=== PATIENT | female | born 1975 | race Caucasian/White ===

== ENCOUNTER 2016-05-28 08:15 | Inpatient (IN) | payer OTHER ==
[~2016-05-28] VITALS: Ht 149.9 cm; Wt 62.6 kg
--- NOTE | ~2016-05-28 | EKG ---
[place] [address] [facility] [place] [address] ELECTROCARDIOGRAM REPORT Name: KERRY CHAVEZ [facility] [id number] Admission: 05/28/16 Attend Phys: Discharge: Date of : 71 Report #: [id number] THIS REPORT FOR: //name// [facility] ED Test Date: 2016-05-28 Test Time: 08:52:34 Pat Name: KERRY CHAVEZ Department: Room: Gender: F Master Baker: Maureen ISLAS : 1975 Requested By: Ronald Dang Order Number: [id number] MD: Cortes Castro Measurements Intervals [place] Rate: 62 P: 24 MS: 117 QRS: 51 QRSD: 84 T: 48 QT: 410 QTc: 417 Interpretive Statements Sinus rhythm Borderline short MS interval No previous ECG available for comparison Electronically Signed On 05-28-2016 8:56:04 [employer] by Cortes Castro [email or web address] <ELECTRONICALLY SIGNED> By: Cortes Castro MD, [facility] 05/28/16 [phone] Cortes Castro MD, FAC /EPI
--- NOTE | ~2016-05-28 | H ---
[facility] [place] [address] HISTORY AND PHYSICAL Name: KERRY CHAVEZ Room #: 548-I [facility] IN .R.#: [id number] Admission: 05/28/16 Attend Phys: Jennyfer Jesus MD Discharge: 05/30/16 Date of : 71 Report #: [id number] THIS REPORT FOR: //name// CC: Fatou Jesus DATE OF SERVICE: 05/28/2016 PRIMARY CARE DOCTOR: Fatou Perez MD CHIEF COMPLAINT: Abdominal pain. 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 History of small bowel obstruction last year in November. Presented to the ER secondary to nausea, vomiting and abdominal pain. Her mom and her aunt are the bedside and are her primary caregivers. Apparently symptoms started early this morning with epigastric pain, nausea and vomiting. She had a couple episodes of emesis. She denies any fever or chills. Workup in the ER revealed patient had a small bowel obstruction. Mom indicates that she is still having stools; however, they are unformed. Generally, she has a daily bowel movement that is formed. 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 PAST SURGICAL HISTORY: She had duodenostomy repair as above. ALLERGIES: MELOXICAM. CURRENT MEDICATIONS: Vitamin D, [place], Synthroid, simvastatin, omeprazole, Neurontin, Tylenol and MiraLax. FAMILY HISTORY: Reviewed and noncontributory. SOCIAL HISTORY: She does not smoke or drink. Lives with her mom who is her primary caregiver. Aunt is also at the bedside. PHYSICAL EXAMINATION: VITAL SIGNS: Temp 98, pulse 66, blood pressure 103/54 and O2 sat 100% on room air. GENERAL: She is awake, alert and answering questions appropriately, in no acute respiratory distress. Very pleasant and appropriate. HEENT: Normocephalic and atraumatic. Pupils are equal. Mucous membranes are [facility] [address] [place] [address] HISTORY AND PHYSICAL Name: KERRY CHAVEZ Room #: 548-I [facility] IN [facility]#: [id number] Admission: 05/28/16 Attend Phys: Jennyfer Jesus MD Discharge: 05/30/16 Date of : 71 Report #: [id number]. NECK: Supple. CARDIOVASCULAR: Regular rate and rhythm. No murmurs. LUNGS: Clear to auscultation bilaterally. No crackles or wheeze. ABDOMEN: Soft. She has got mid abdominal tenderness. Mild distention. Decrease in bowel sounds. EXTREMITIES: No edema. NEUROLOGIC: Nonfocal. LABORATORIES AND TESTING: CT of the abdomen and pelvis showed small bowel obstruction. Mild wall thickening of urinary bladder correlates for cystitis. Her UA was negative. White count of 11.8, H and H of 12 and 38, platelets 469, 88 segs and 5 bands. Sodium 140 and potassium 3.6. BUN and creatinine of 5 and 1.1. LFTs are negative. ASSESSMENT AND PLAN: 1. Small bowel obstruction. The patient with history of duodenal atresia and prior history of the same. We will continue bowel rest, antiemetics and pain control. Surgery has been notified. 2. Dyslipidemia. We will hold her statin for now. 3. Hypothyroidism. We will hold her Levoxyl. She has prolonged bowel rest and n.p.o. status. We will switch her to IV. 4. Chronic pain, on Neurontin. We will hold her Neurontin for now and continue IV pain medication. 5. High-functioning Down. The patient appears appropriate to manage her own decisions; however, mother is her caregiver ____ if patient is incapable of making her own decisions at any point. 6. Deep venous thrombosis prophylaxis with Lovenox. <ELECTRONICALLY SIGNED> By: Jennyfer Jesus MD 06/23/162009 [id number] [id number] Jennyfer Jesus MD /nt
--- NOTE | ~2016-05-28 | HC ---
[facility] [place] [address] CONSULTATION Name: KATHYKERRY Room #: 548-I ADM IN M.R.#: [id number] Admission: 05/28/16 Attend Phys: Jennyfer Jesus MD Discharge: Date of : 71 Report #: [id number] THIS REPORT FOR: //name// CC: Fatou Jesus DATE OF SERVICE: 05/28/2016 REFERRING PROVIDER: Jennyfer Jesus MD. REASON FOR CONSULTATION: Abdominal pain. HISTORY OF PRESENT ILLNESS: The patient is a 40-year-old female with Down syndrome, who presents with crampy abdominal pain that began early this morning. The patient has had 2 bouts of vomiting, while at home, and as such, she presented for evaluation. Of note, the patient had very similar symptoms on 12/14/2015, where she was admitted for a small-bowel obstruction that showed dilated stomach and small bowel to the mid small bowel with decompressed ileum. On admission, this time, the patient underwent a CT scan of the abdomen and pelvis again, as well as laboratories and while her labs are within normal limits. Her CT scan showed fluid filled distended stomach, and proximal small bowel with decompressed distal small bowel, again concerning for partial small-bowel obstruction. The patient was, therefore, admitted for recurrent small-bowel obstruction, and I have been asked to evaluate from a surgical standpoint. At the patient's prior to admission, there was a question of mild partial bowel rotation; however, this was thought secondary to her duodenal atresia repair in infancy, and she had no overt evidence of midgut volvulus. On this most recent CT scan, she has no evidence of mesenteric twisting whatsoever. PAST MEDICAL HISTORY: 1. Down syndrome with prior duodenal atresia repair, as she is status post duodenoduodenostomy. 2. Hypothyroidism. 3. Hypercholesterolemia. 4. Vitamin D deficiency. 5. Reflux sympathetic dystrophy on the right side. MEDICATIONS: Vitamin D, [place], Synthroid, simvastatin, omeprazole, Neurontin, Tylenol, and MiraLax. ALLERGIES: MELOXICAM. FAMILY HISTORY: Reviewed and noncontributory. SOCIAL HISTORY: The patient lives with her mother and does not utilize any alcohol, tobacco, or illicit drugs. [address] [address] CONSULTATION Name: KERRY CHAVEZ Room #: 548-I [facility] IN ..#: [id number] Admission: 05/28/16 Attend Phys: Jennyfer Jesus MD Discharge: Date of : 71 Report #: [id number] REVIEW OF SYSTEMS: GENERAL: The patient denies nocturnal fevers or chills. HEENT: No change in vision or change in hearing. NECK: No swelling or difficulty swallowing. HEART: No chest pain or palpitations. LUNGS: No cough or shortness of breath. ABDOMEN: Abdominal pain with vomiting. GENITOURINARY: No dysuria or hematuria. ENDOCRINE: No polyuria or polydipsia. HEMATOLOGIC: No history of bleeding or easy bruising. EXTREMITIES: No history weakness or limited range of motion. NEUROLOGIC: No history of syncope or near syncopal episodes. SKIN AND INTEGUMENT: No history of abnormal lesions or moles. PSYCHIATRIC: No history of anxiety or depression. PHYSICAL EXAMINATION: VITAL SIGNS: Temperature 98.4, pulse 63, respirations 19, blood pressure 117/64. She is 4 feet 11 inches tall and weighs 138 pounds. GENERAL: She is alert, in no acute distress. HEENT: Normocephalic and atraumatic. Pupils are equal, round, and reactive to light. NECK: Supple without lymphadenopathy. Trachea is midline. HEART: Regular rate and rhythm. LUNGS: Clear to auscultation bilaterally. GASTROINTESTINAL: Abdomen is soft. No real distention with minimal tenderness in the epigastrium, but no guarding, rebound, or peritoneal signs or symptoms. She has hypoactive bowel sounds. GENITOURINARY: Normal external female genitalia. EXTREMITIES: No clubbing, cyanosis, or edema. NEUROLOGIC: Cranial nerves 2-12 are grossly intact. PSYCHIATRIC: Normal mood and affect. SKIN AND INTEGUMENT: No abnormal lesions or moles. LABORATORY AND X-RAY DATA: CBC shows white blood cell count of 11,800, hemoglobin 12.9, platelets 469,000. She has a left shift of 88% neutrophils. Creatinine is 1.1. Liver function enzymes are normal. Urinalysis is negative. 3-view abdominal x-ray shows a nonspecific bowel gas pattern. CT scan of the abdomen and pelvis, as per HPI, shows dilated stomach and proximal small bowel measuring up to 3 cm in diameter with no overt transition point and there is fluid and gas throughout the colon, concerning for partial small-bowel obstruction. ASSESSMENT AND PLAN: This is a 40-year-old female with Down syndrome, who underwent a prior abdominal exploration for repair of duodenal atresia in infancy, who presents with an 8-hour history of abdominal pain, nausea, and [facility] [address] [place] [address] CONSULTATION Name: KERRY CHAVEZ Room #: 548-I ADM IN Rigoberto.#: [id number] Admission: 05/28/16 Attend Phys: Jennyfer Jesus MD Discharge: Date of : 71 Report #: [id number] vomiting. The patient's workup shows a partial small-bowel obstruction, with dilated and fluid-filled stomach and proximal small bowel and decompressed ileum; however, she is not actively vomiting or nauseated at the present time. I do think a trial of bowel rest with conservative measures is appropriate rather than placement of an NG tube at this time, as that would be quite traumatic in this patient. She has been admitted by the hospitalist service where she will be given IV fluid rehydration and bowel rest, and I will conduct serial abdominal exams and daily x-rays. Again, she has the high likelihood of clearing this bowel obstruction with conservative therapy over the next few days. However, if she does become actively nauseated and vomits, she may necessitate placement of an NG tube for decompression, and ultimately she may necessitate some form of surgical intervention if she does not resolve with conservative measures. I sincerely appreciate this consult. I will follow along and leave any further recommendations in the patient's chart as appropriate. <ELECTRONICALLY SIGNED> By: Lynda Atwood MD, FACS 05/29/16 0656 1306 50 Lynda Atwood MD, FACS /nt
--- NOTE | ~2016-05-28 | D ---
[facility] [place] [address] DISCHARGE SUMMARY Name: KATHYKERRY Room #: 548-I [facility] IN M.R.#: [id number] Admission: 05/28/16 Attend Phys: Jennyfer Jesus MD Discharge: 05/30/16 Date of : 71 Report #: [id number] THIS REPORT FOR: //name// CC: Fatou Jesus DATE OF SERVICE: 05/30/2016 DATE OF ADMISSION: 05/28/2016. DATE OF DISCHARGE: 05/30/2016. DISCHARGE DIAGNOSES: 1. Abdominal pain, now resolved. 2. History of duodenal atresia. 3. Dyslipidemia. 4. Hypothyroidism. 5. Chronic pain. 6. Down syndrome. 7. Vitamin D deficiency. 8. Reflex sympathetic dystrophy. CONSULTS: Surgery, Dr. Atwood. PROCEDURES: None. HOSPITAL COURSE: The patient is a 40-year-old female with a history of high function Down syndrome, prior duodenal atresia, status post duodenostomy, as well as history of small bowel obstruction in November of last year, presented to the ER secondary to nausea, vomiting and abdominal pain. Please see details of admission dictated by myself on 05/28. Workup in the ER included a CT scan of the abdomen that showed small-bowel obstruction and mild wall thickening of the urinary bladder. The patient was admitted and surgery was consulted. She was put on bowel rest, antiemetics and pain control. Surgery saw her in consult and agreed with the current plans; however, the following day, she had a repeat abdominal x-ray that showed nonspecific bowel gas pattern, and at that time, she was feeling better with less pain. She was also ambulating in the hallways without problems. I spoke with Dr. Atwood, who reviewed the CT with Radiology, and felt that she in fact did not have a bowel obstruction. At that time, clinically she was much improved. No nausea, vomiting or abdominal pain. Her mom, who is her primary caregiver, was not happy with her potential discharge without a repeat CAT scan. However, I talked to Dr. Atwood, who did not feel that she needed it. She started clears, and was able to tolerate it; therefore, was discharged to home. Again, this was under the instruction of Dr. Atwood, who I spoke with, and who reviewed the CAT scan from prior hospitalization and this current hospitalization and felt that she did not have a bowel obstruction. [address] [address] DISCHARGE SUMMARY Name: KERRY CHAVEZ Room #: 548-I [facility] IN .R.#: [id number] Admission: 05/28/16 Attend Phys: Jennyfer Jesus MD Discharge: 05/30/16 Date of : 71 Report #: [id number] Per nurses' report, the patient was doing well and tolerated her diet and had no other issues. DISCHARGE DISPOSITION: To home. DISCHARGE PHYSICAL EXAMINATION: VITAL SIGNS: Temperature of 36.7, pulse 57, blood pressure 118/60 and O2 sat 98% on room air. GENERAL: She is awake, alert, answering question appropriately and in no acute respiratory distress. NECK: Supple. CARDIOVASCULAR: Regular rate and rhythm. No murmurs. LUNGS: Clear to auscultation bilaterally. No crackles or wheezes. ABDOMEN: Soft, no distention and no tenderness. EXTREMITIES: No edema. NEUROLOGIC: Nonfocal. DISCHARGE MEDICATIONS: Levothyroxine 75 mcg daily, simvastatin 20 daily, vitamin D 1000 units daily, omeprazole 20 daily, Ogema p.r.n., gabapentin 600 b.i.d., Tylenol p.r.n. and MiraLax 17 grams daily. DIET: Dix diet as tolerated. ACTIVITY: As tolerated. DISCHARGE INSTRUCTIONS: Followup CBC and CMP in 1 week and to seek immediate medical attention if symptoms worsen or recur or if she has any significant medical concerns. Discharge plan took 40 minutes in coordinating care with staff as well as speaking with surgery. <ELECTRONICALLY SIGNED> By: Jennyfer Jesus MD 07/20/16 1053 1446 1811 Jennyfer Jesus MD /nt
[~2016-05-28 08:15] MED LIST: AMITRIPTYLINE H25 M2 PO; B-12500 MCG PO; HYDROCODON-ACE1 EAC5 PO; IBUPROFEN 800800 MG PO; LEVOXYL75 MCG PO; NEURONTIN 300300 M1 PO; OMEPRAZOLE 20 M20 MG PO; SIMVASTATIN20 MG PO; VITAMIN D400 UNI1 PO; ZOFRAN4 MG PO
[2016-05-28 08:16] VITALS: BP 137/70
[2016-05-28] MEDS ORDERED: APAP500 PO (08:54)
[2016-05-28] MEDS ORDERED: MIRALAX17 GM PO (08:57)
[2016-05-28 09:14] LABS: HEMATOCRIT 38.9 % (37.0-47.0); HEMOGLOBIN 12.9 gm/dL (12.0-15.0); MCH 32.8 pg (26.0-34.0); MCHC 33.2 % (28.0-37.0); MCV 98.7 fL (80.0-100.0); PLATELET COUNT 469 thou/uL (150-400); RBC 3.94 mil/uL (4.20-5.00); RDW 16.4 % (10.5-14.5); WBC 11.8 thou/uL (4.0-11.0)
[2016-05-28 09:15] LABS: MANUAL DIFF YES
[2016-05-28 09:17] LABS: ANION GAP 8 mmol/L (7-16); BUN 5 mg/dL (7-18); CALCIUM 9.4 mg/dL (8.5-10.1); CHLORIDE 103 mmol/L (98-107); CO2 29 mmol/L (21-32); CREATININE 1.1 mg/dL (0.6-1.3); GLUCOSE 135 mg/dL (70-99); POTASSIUM 3.6 mmol/L (3.5-5.1); SODIUM 140 mmol/L (136-145)
[2016-05-28 09:25] LABS: ALBUMIN 3.7 g/dL (3.4-5.0); ALKALINE PHOSPHATASE 76 U/L (46-116); SGOT 18 U/L (15-37); SGPT 22 U/L (30-65); TOTAL BILIRUBIN 0.4 mg/dL (<0.1-1.0); TROPONIN-I < 0.04 ng/mL (<0.04-0.07)
[2016-05-28 10:09] LABS: URINE BILIRUBIN NEGATIVE (Negative); URINE BLOOD NEGATIVE (Negative); URINE COLOR YELLOW; URINE GLUCOSE-RANDOM* NEGATIVE (Negative); URINE KETONES NEGATIVE (Negative); URINE LEUKOCYTES-REFLEX NEGATIVE (Negative); URINE PROTEIN (DIPSTICK) NEGATIVE (Negative); URINE SPECIFIC GRAVITY 1.015 (1.003-1.035); URINE UROBILINOGEN 0.2 E.U./dl (0.2-1.0)
[2016-05-28 10:21] LABS: TOTAL CELL COUNT 100
[2016-05-28 10:22] LABS: LARGE PLATELETS FEW
[2016-05-28 13:10] VITALS: BP 117/64
[2016-05-28 16:29] VITALS: BP 103/54
[2016-05-28 20:00] VITALS: BP 111/58
[2016-05-28 23:49] LABS: TROPONIN-I < 0.04 ng/mL (<0.04-0.07)
[2016-05-29 04:00] VITALS: BP 140/57
[2016-05-29 05:51] LABS: ABSOLUTE NEUTROPHILS 3.6 thou/uL (1.4-8.2); BASOPHILS 0.6 % (0.0-2.0); EOSINOPHILS 0.2 % (0.0-3.0); HEMATOCRIT 32.5 % (37.0-47.0); HEMOGLOBIN 10.8 gm/dL (12.0-15.0); LYMPHOCYTES 22.2 % (24.0-44.0); MCH 33.4 pg (26.0-34.0); MCHC 33.2 % (28.0-37.0); MCV 100.7 fL (80.0-100.0); MONOCYTES 7.1 % (1.0-8.0); POLYS 69.9 % (36.0-66.0); RBC 3.23 mil/uL (4.20-5.00); RDW 16.1 % (10.5-14.5); WBC 5.1 thou/uL (4.0-11.0)
[2016-05-29 05:54] LABS: MANUAL DIFF NO
[2016-05-29 06:11] LABS: CALCIUM 7.9 mg/dL (8.5-10.1); CREATININE 0.9 mg/dL (0.6-1.3); POTASSIUM 4.2 mmol/L (3.5-5.1)
[2016-05-29 08:24] LABS: ANISOCYTOSIS 1+
[2016-05-29 08:38] VITALS: BP 101/52
[2016-05-29 11:35] LABS: PLATELET COUNT 285 thou/uL (150-400)
[2016-05-29 15:22] VITALS: BP 101/52
[2016-05-29 16:07] VITALS: BP 131/70
[2016-05-29 20:00] VITALS: BP 130/75
[2016-05-30 04:00] VITALS: BP 127/70
[2016-05-30 08:15] VITALS: BP 118/60
[2016-07-03] MEDS ORDERED: VITAMIN D 5050000 I1 PO (14:15)
[2016-07-03] MEDS ORDERED: ZOCOR 10 MG TAB10 MG PO (14:16)
[2016-07-03] MEDS ORDERED: LYRICA 75 MG CA75 MG PO (14:17)
[2016-07-03] MEDS ORDERED: CYMBALTA30 MG PO (14:17)
== END 2016-05-30 09:32 | disposition home or self-care (01) | DRG 390 ==
LOC: ER 08:15 → 5S 12:19 → EROBS 12:19 → 5S 13:00
PROVIDERS: Emergency Medicine; Family Medicine; Surgery
DX: K56.60 Unspecified intestinal obstruction (principal); K21.9 Gastro-esophageal reflux disease without esophagitis; G56.00 Carpal tunnel syndrome, unspecified upper limb; E03.9 Hypothyroidism, unspecified; G89.29 Other chronic pain; E78.00 Pure hypercholesterolemia, unspecified; E78.5 Hyperlipidemia, unspecified; Q90.9 Down syndrome, unspecified; Z79.899 Other long term (current) drug therapy; Z93.3 Colostomy status; Z88.8 Allergy status to other drugs, medicaments and biological substances
CPT/HCPCS: 10785

== ENCOUNTER → 2016-08-07 | Outpatient (CLI) | payer OTHER ==
[~2016-08-07] MED LIST changes: +APAP500 PO; +CYMBALTA30 MG PO; +LYRICA 75 MG CA75 MG PO; +MIRALAX17 GM PO; +VITAMIN D 5050000 I1 PO; +ZOCOR 10 MG TAB10 MG PO
--- NOTE | ~2016-08-07 | S ---
[facility] [place] [address] SURGICAL PATH RPT PROCEDURE Name: KERRY CHAVEZ Room #: REG Angela Franklin.#: [id number] Admission: 08/07/16 Date of : 71 Discharge: Report #: [id number] Path Case #: [id number] PATHOLOGY REPORT COLLECTION DATE: 08/07/2016 RECEIVED DATE: 08/07/2016 SUBMITTING PHYS: Dr. Mauricio Blackmon OTHER PHYS: Dr. Fatou Perez SPECIMEN(S) RECEIVED: A.Small bowel bx * * * * * * * * * * * * FINAL DIAGNOSIS: "Small bowel bx," biopsy: - Small bowel / duodenal mucosa with minimal histologic alterations; no evidence of celiac sprue. (CLW:; d/t: 08/10/16) PATHOLOGIST: Kirsty Dhillon M.D. REPORT ELECTRONICALLY SIGNED BY: Kirsty Dhillon M.D. DATE/TIME: 08/10/2016 14:52 * * * * * * * * * * * * GROSS PATHOLOGY: Received in formalin labeled "Kerry Chavez and bx of small bowel," are 6 segments of nicholson soft tissue measuring 2.2 x 0.3 x 0.2 cm in aggregate dimensions and ranging from 0.2 to 0.7 cm in maximum dimension. The specimen is submitted entirely in cassette A1. (TTL; 08/07/2016) CLINICAL HISTORY: None given INITIAL CPT CODE(S): A; 90567 Professional services performed by [facility] at [facility] [address] [place] [address] Technical services performed by [facility] at [address] [place] [id number]. [facility] [address] [place] [address] SURGICAL PATH RPT PROCEDURE Name: KERRY CHAVEZ Room #: REG MACK Deal#: [id number] Admission: 08/07/16 Date of : 71 Discharge: Report #: [id number] Path Case #: [id number] [address] PHONE: [phone] DIRECTOR: Jose Childs M.D. * * * END OF REPORT * * *
--- NOTE | ~2016-08-07 | P ---
[facility] [place] [address] PROCEDURE REPORT Name: KATHYKERRY [facility] [id number] Admission: 08/07/16 Attend Phys: Mauricio Blackmon MD Discharge: Date of : 71 Report #: [id number] THIS REPORT FOR: //name// CC: JAKE Perez BRIEF HISTORY: The patient is a 40-year-old woman known to me who had a recent admission for small-bowel obstruction. She has continued to lose weight. She has a history of cervical esophageal ring with previous dilation, but denies dysphagia. However, mother reports that she is not eating as much as she has eaten in the past. PREOPERATIVE DIAGNOSES: Abdominal pain, weight loss and history of cervical esophageal ring. Anemia, normochromic. POSTOPERATIVE DIAGNOSES: 1. Mild erythematous gastritis. 2. Moderately tight cervical esophageal ring. 3. Deformity duodenum consistent with previous surgery for duodenal stenosis as an . MEDICATIONS: Deep sedation with propofol per anesthesia. SPECIMEN: Small bowel biopsy rule out celiac disease. ESTIMATED BLOOD LOSS: 3 mL. PROCEDURE: EGD with biopsy. FINDINGS: Prior to sedation, procedure of upper endoscopy and dilation was discussed with the patient ____ as well as potential risks, benefits and complications. They indicate they understand and desire that we proceed. DESCRIPTION OF THE PROCEDURE: With the patient in the left lateral decubitus position, the Quandorai video endoscope was inserted in the oropharynx and into the cervical esophagus. Immediately upon entering the cervical esophagus a high grade ring was seen. This had been dilated in the past. It was too tight to allow forward advancement of the scope, although I could easily see the ring. It had a smooth and benign appearance. The Savary wire was advanced through the biopsy channel of the scope and through the lumen of the ring and distally. The scope was drawn and she was dilated over the wire with 10, 11 and 12 mm dilators. Following dilation, there was a moderate superficial mucosal tear. The tear was shallow and not deep. It appeared to be essentially mucosa that was torn. This was consistent with dilation. Due to the size of the defect, we did not dilate any further today. The scope was advanced throughout the [facility] [address] [place] [address] PROCEDURE REPORT Name: KERRY CHAVEZ Room #: REG MACK Franklin.#: [id number] Admission: 08/07/16 Attend Phys: Mauricio Blackmon MD Discharge: Date of : 71 Report #: [id number] remainder of the esophagus, which was noted to be unremarkable. Normal appearing mucosa. A significant hiatus hernia was not seen. Scope was advanced into the stomach, which was examined on end view as well as retroflexed views. She had some erythema in the antrum of stomach, no ulcers were seen, previous biopsies for H. pylori were negative, those were not repeated today. Upon retroflexion, no mass lesions were seen. The pylorus was normal. Examination of duodenal bulb in a particular second portion of duodenum revealed this to be somewhat cavernous in size. However, the mucosa appeared to be intact. In view of her weight loss and celiac disease, biopsies obtained to evaluate for celiac disease. The duodenal papilla was clearly seen, bile was seen coming from it. It had a normal appearance. Interestingly, the major papilla on the proximal site of the same folds, there was a significant defect seen, which was draining bilious material. It is noted she has had surgery in the past for duodenal stenosis. I wonder if she had a drainage procedure at the time of her surgery for duodenal stenosis. This is in the region of the minor papilla, but a definite minor papilla was not seen. I suspect that this is result from a surgery as an . The third portion of the duodenum was unremarkable. Multiple biopsies were obtained to evaluate for celiac disease. At that point, the scope was slowly withdrawn and careful circumferential views confirmed the above findings. The patient tolerated the procedure well. CONDITION OF THE PATIENT UPON DISCHARGE: Following procedure, the patient drowsy and arousable. She will be discharged to home when fully ambulatory. INSTRUCTIONS TO THE PATIENT AND FAMILY AT THE TIME OF DISCHARGE: We will follow up on biopsies, which were obtained today. Also, I think we should have her return in a couple of weeks for repeat dilation as we only got up to 12 mm today. This may require several sessions of dilation. I would wonder if weight loss and not eating as much is related to stricture although the patient denies that she is having trouble swallowing, but clearly she has significant stricturing. <ELECTRONICALLY SIGNED> By: Mauricio Blackmon MD 08/07/16 2034 0849 1203 Mauricio Blackmon MD /martha
== END | disposition home or self-care (01) ==
LOC: GI 06:38
DX: K56.69 Other intestinal obstruction (principal); D64.9 Anemia, unspecified; K29.70 Gastritis, unspecified, without bleeding

== ENCOUNTER → 2016-09-18 | Outpatient (CLI) | payer OTHER ==
[~2016-09-18] VITALS: Ht 147.3 cm; Wt 55.3 kg
[~2016-09-18] MED LIST changes: +LEVOTHYROXINE0.05 MG PO; +LYRICA 50 MG50 MG PO
--- NOTE | ~2016-09-18 | P ---
[facility] [place] [address] PROCEDURE REPORT Name: KATHYKERRY [id number] Admission: 09/18/16 Attend Phys: Mauricio Blackmon MD Discharge: Date of : 71 Report #: [id number] THIS REPORT FOR: //name// CC: Mauricio Perez MD DATE OF SERVICE: 09/18/2016 BRIEF HISTORY: The patient is a 40-year-old woman with history of Down syndrome and also recently found to have a high-grade proximal esophageal ring. Several weeks ago, she was initially dilated, returns today for continued dilation. PREOPERATIVE DIAGNOSIS: High-grade proximal esophageal ring. POSTOPERATIVE DIAGNOSES: 1. High grade proximal esophageal ring. 2. Mild diffuse gastritis. MEDICATIONS: Deep sedation with propofol per anesthesia. SPECIMEN: None. ESTIMATED BLOOD LOSS: 3 mL. PROCEDURE: EGD with insertion of guidewire and Savary dilation over a guidewire. FINDINGS: Prior to propofol sedation, procedure was discussed with the patient and her mother. We reviewed what we will be doing today. They indicate they understand and desire that we proceed. DESCRIPTION OF PROCEDURE: With the patient in left lateral decubitus position, the [employer] video endoscope was inserted in the cervical esophagus. Immediately upon entering the cervical esophagus, an obstruction was encountered. Unfortunately, the scope would not pass, even though we dilated to 12 mm at her last session. It was difficult to see the ring, but it was noted to be present. A guidewire was advanced through the lumen and the scope withdrawn and she was dilated with 11, 12 and 12.8 mm dilators. Following passage of 12.8, we introduced the scope and she was noted to have a moderate superficial tear. This was noted on one wall. On the opposite wall, there was a minor secondary tear which was much smaller. Again, these tears were shallow. At this point, the scope passed very easily through the cervical esophagus. Examination of the remainder of the esophagus was normal. The squamocolumnar junction was unremarkable. Scope was advanced in the stomach, which was examined on end view as well as retroflexed views. There was erythematous gastritis. No ulcers or [facility] [address] [place] [address] PROCEDURE REPORT Name: REESEADEOLA JAYKERRY Room #: REG [facility].#: [id number] Admission: 09/18/16 Attend Phys: Mauricio Blackmon MD Discharge: Date of : 71 Report #: [id number] erosions were seen. Pylorus was normal. Examination of duodenal bulb again revealed it to be cavernous, likely related to her previous surgery as an . No instructions were seen. At that point, the scope was slowly withdrawn and careful circumferential views confirmed the above findings. The patient tolerated the procedure well. CONDITION OF THE PATIENT UPON DISCHARGE: Following procedure, the patient drowsy. She will be discharged home when fully ambulatory. INSTRUCTIONS TO THE PATIENT AND FAMILY AT THE TIME OF DISCHARGE: We will have her start off with clear liquids today and advance as tolerated. Unfortunately, the ring had reformed again in the past several weeks. We did dilate 1 level higher than her last visit. We will have her return in several weeks for continued dilation. I would like to get her up to at least 15-16 mm. <ELECTRONICALLY SIGNED> By: Mauricio Blackmon MD 09/19/16 1228 [id number] Mauricio Blackmon MD /nt
== END ==
LOC: GI 06:31
DX: K29.50 Unspecified chronic gastritis without bleeding (principal); K31.9 Disease of stomach and duodenum, unspecified; K21.9 Gastro-esophageal reflux disease without esophagitis; E03.9 Hypothyroidism, unspecified; K22.2 Esophageal obstruction
CPT/HCPCS: 62110; 62900

== ENCOUNTER → 2016-10-05 | Outpatient (CLI) | payer OTHER ==
[~2016-10-05] VITALS: Ht 121.9 cm; Wt 55.3 kg
--- NOTE | ~2016-10-05 | P ---
[facility] [address] PROCEDURE REPORT Name: NIKALUKEKERRY Room #: [facility] [id number] Admission: 10/05/16 Attend Phys: Mauricio Blackmon MD Discharge: Date of : 71 Report #: [id number] THIS REPORT FOR: //name// CC: Mauricio Perez MD OUTPATIENT UPPER ENDOSCOPY REPORT BRIEF HISTORY: The patient is a 41-year-old woman with Down syndrome with high-grade proximal esophageal ring for repeat dilation. PREOPERATIVE DIAGNOSIS: Esophageal ring with dysphagia. POSTOPERATIVE DIAGNOSES: 1. Proximal esophageal ring. 2. Diffuse chronic gastritis. 3. 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 SPECIMEN: None. ESTIMATED BLOOD LOSS: 3 mL. PROCEDURE: EGD with insertion of guidewire in Savary dilator over wire. CONSENT: Prior to propofol sedation, procedure of upper endoscopy and dilation was reviewed with the patient and her mother. They indicate they understand and desired that we proceed. DESCRIPTION OF PROCEDURE: With the patient in left lateral decubitus position, the [employer] video endoscope was inserted in the cervical esophagus under direct vision without difficulty. Examination of this organ to its entire length revealed normal esophageal mucosa. Particularly, in the proximal esophagus, a ring was noted with the scope passed prior to dilation. Examination of the entire esophagus revealed normal mucosa. The squamocolumnar junction was unremarkable. Significant hiatus hernia was not seen. The scope was advanced into the stomach, was examined on end views as well as retroflexed views. There was diffuse gastritis which had been noted in the past. No ulcers were seen. Upon retroflexion, no abnormalities were seen. The pylorus, duodenal bulb and postbulbar duodenal sweep were all inspected and noted to be within normal limits. The pylorus was normal. The duodenal bulb was inspected and noted to be deformed as noted on previous exam consistent with her surgery as an . No other abnormalities were seen. Scope was withdrawn back to the stomach. A guidewire was inserted through the biopsy channel and scope. The scope was withdrawn over the guidewire. We then dilated with a 12.8 which is what we finished up with dilation at the last session, and then we followed this with a [facility] [address] [place] [address] PROCEDURE REPORT Name: KERRY CHAVEZ Room #: REG [facility] Say#: [id number] Admission: 10/05/16 Attend Phys: Mauricio Blackmon MD Discharge: Date of : 71 Report #: [id number] 14 mm dilator. A second look after passage of 12.8 did reveal a mucosal tear. However, the tear was shallow. It was felt best at this point to terminate the procedure. The scope and wire were withdrawn. The patient tolerated the procedure well. CONDITION OF THE PATIENT UPON DISCHARGE: Following procedure, the patient drowsy but arousable. She will be discharged home when fully ambulatory. Given instructions to the patient and family at the time of discharge. She has an esophageal ring, which was dilated once again as noted. Clinically the patient is doing well. She reports her swallowing has significantly improved. Since it is difficult for the procedure especially with regards to IV sticks, we will see how she does in the near future. If she starts having dysphagia again, we will need to repeat dilation. She will return to the care of Dr. Fatou Perez and return to see me as needed. <ELECTRONICALLY SIGNED> By: Mauricio Blackmon MD 10/06/16 1742 [id number] Mauricio Blackmon MD /nt
== END | disposition home or self-care (01) ==
LOC: GI 08:29
DX: K22.2 Esophageal obstruction (principal); R13.10 Dysphagia, unspecified; K29.50 Unspecified chronic gastritis without bleeding; K31.89 Other diseases of stomach and duodenum; Q90.9 Down syndrome, unspecified; K21.9 Gastro-esophageal reflux disease without esophagitis; E78.00 Pure hypercholesterolemia, unspecified; E03.9 Hypothyroidism, unspecified; Z98.890 Other specified postprocedural states
CPT/HCPCS: 62110; 62900

== ENCOUNTER → 2017-11-05 | Outpatient (CLI) | payer OTHER ==
[~2017-11-05] VITALS: Ht 147.3 cm; Wt 65.8 kg
[~2017-11-05] MED LIST changes: +CARBAMAZEPINE100 M2 PO; +HYDROCODONE-AP1 EAC6 PO; +PRILOSEC 20 MG20 MG PO; +VITAMIN B-121000 MC3 PO; +VITAMIN D1000 UNI1 PO
--- NOTE | ~2017-11-05 | P ---
[facility] [place] [address] PROCEDURE REPORT Name: KATHYKERRY Room #: [facility] [id number] Admission: 11/05/17 Attend Phys: Mauricio Blackmon MD Discharge: Date of : 71 Report #: [id number] THIS REPORT FOR: //name// CC: Mauricio Perez MD [facility] DATE OF SERVICE: 11/05/2017 BRIEF HISTORY: The patient is a 42-year-old woman well known to me who was having problem in the past with dysphagia and reflux disease. More recently, she has had problems with right upper quadrant pain. She has developed this pain in spite of PPI therapy. Recent ultrasound was negative. Recent laboratory studies were unremarkable with regards to her symptoms of abdominal pain. PREOPERATIVE DIAGNOSIS: Abdominal pain. POSTOPERATIVE DIAGNOSES: 1. Moderate stricture, proximal esophagus. 2. Retained food material in stomach suggestive of gastroparesis. 3. Deformed duodenal bulb consistent with previous surgery without obstruction. MEDICATIONS: Deep sedation with propofol for anesthesia. SPECIMEN: None. ESTIMATED BLOOD LOSS: 3 mL. PROCEDURE: EGD with insertion of guidewire and dilation of the esophagus with Savary dilators over wire. FINDINGS: Prior to propofol sedation, procedure of upper endoscopy was reviewed with the patient as well as potential risks and its complications. She indicates she understands and desires to proceed. DESCRIPTION OF PROCEDURE: With the patient in left lateral decubitus position, the Olympus video endoscope was advanced in the oropharynx. At the level of the upper esophageal sphincter, we could see lumen, but the scope would not pass. She has been dilated in the past and I do not see any obvious stricturing today. It appeared to be widely patent, but the scope would not pass with gentle pressure. We then inserted the guidewire and dilated with 9, 10, 11 mm dilators. The scope then passed easily. Interestingly, examination of the upper esophageal sphincter area did not reveal evidence of any significant mucosal injury or trauma. Examination of the esophagus throughout its entire [facility] [address] [address] PROCEDURE REPORT Name: KERRY CHAVEZ Room #: REG [facility] Rigoberto.#: [id number] Admission: 11/05/17 Attend Phys: Mauricio Blackmon MD Discharge: Date of : 71 Report #: [id number] length revealed normal mucosa. There is no evidence of esophagitis. Examination of the GE junction revealed normal mucosa. A hiatus hernia was not seen. Scope was advanced into the stomach, which was examined on end views as well as retroflexed views. There was a small amount of retained food material in the stomach consistent with gastroparesis. A bezoar was not seen. Upon retroflexion, no mass lesions were seen. Examination of distal stomach revealed food material, but no ulcers, erosions or evidence of outlet obstruction. No ulcers were seen. The pylorus was normal. Examination of duodenal bulb revealed it to be dilated. This was consistent with surgery as an . The scope was advanced to the dilated duodenal bulb into the second portion of duodenum, which was noted to be unremarkable. The scope was passed down the third and fourth portion of duodenum without difficulty. At that point, the scope was slowly withdrawn and careful circumferential views were obtained. We then dilated with 12 and 12.8 mm dilators. After passage of 12.8, a mild mucosal tear was seen and no further dilation was undertaken. The wire and scope withdrawn. The patient tolerated the procedure well. CONDITION OF THE PATIENT UPON DISCHARGE: Following procedure, the patient was drowsy. She will be discharged home when fully ambulatory. INSTRUCTIONS TO THE PATIENT AND FAMILY AT THE TIME OF DISCHARGE: She was dilated as noted above. We will see how she does following dilation. If she has further difficulty, she will return for further dilation. She should continue her PPI at this point in time for her reflux disease. As far as abdominal pain, she does have retained food material within her stomach. This likely represents a component of gastroparesis as I did not see evidence of outlet obstruction today. It is noted that she has had distal small bowel obstructions in the past. Her last CAT scan was about a year and a half ago and there was no evidence of obstruction at that point in time. We will obtain a gastric emptying study for further evaluation. May need to consider repeating CT or even a CT or MRI enterography for further evaluation if her symptoms persist. As far as her dysphagia, she is to return on an as needed basis for dilation due to symptoms of dysphagia. <ELECTRONICALLY SIGNED> By: Mauricio Blackmon MD 11/08/17 1100 [id number] [id number] Mauricio Blackmon MD /martha
== END | disposition home or self-care (01) ==
LOC: GI 07:32
DX: K22.2 Esophageal obstruction (principal); K21.9 Gastro-esophageal reflux disease without esophagitis; F32.9 Major depressive disorder, single episode, unspecified; Q90.9 Down syndrome, unspecified; E78.5 Hyperlipidemia, unspecified; Z98.890 Other specified postprocedural states; E03.9 Hypothyroidism, unspecified; G90.50 Complex regional pain syndrome I, unspecified
CPT/HCPCS: 62110; 62900

== ENCOUNTER → 2017-11-19 | Outpatient (CLI) | payer OTHER | LOC: CAT 07:25 | DX: K56.41 Fecal impaction (principal); R10.11 Right upper quadrant pain; R10.84 Generalized abdominal pain; M47.816 Spondylosis without myelopathy or radiculopathy, lumbar region; M41.86 Other forms of scoliosis, lumbar region; M46.06 Spinal enthesopathy, lumbar region ==